=== PATIENT | female | born 1985 | race Caucasian/White ===

== ENCOUNTER 2019-01-06 14:41 | Emergency (ER) | payer SELFPAY ==
[~2019-01-06] VITALS: Ht 162.6 cm; Wt 68.9 kg
[~2019-01-06 14:41] MED LIST: PREN1TAB49
[2019-01-06 14:43] VITALS: BP 133/67; PULSE 148; RESP 16; Ht 162.6 cm; Wt 68.9 kg
== END 2019-01-06 23:35 | disposition left against medical advice (07) ==
LOC: FTE 14:41
DX: Z53.21 Procedure and treatment not carried out due to patient leaving prior to being seen by health care provider (principal)